=== PATIENT | male | born 1990 | race Caucasian/White ===

== ENCOUNTER 2017-10-27 14:38 | Emergency (ER) | payer SELFPAY ==
[~2017-10-27] VITALS: Ht 175.3 cm; Wt 72.7 kg
--- NOTE | 2017-10-27 16:57 | REP ---
Clinical: Left scrotal lump times 1 week. Technique: Real time beck scale and color Doppler evaluation using linear high frequency transducer. Findings: The bilateral testicles and epididymal heads are normal in contour, size, echogenicity and vascularity without testicular torsion, infectious/inflammatory process, mass lesion or epididymitis. A small right hydrocele is identified with two small cystic appendices testis/appendices epididymis measuring up to 4 mm. A small/moderate left hydrocele is identified with a single 5 mm cystic appendix testis/appendix epididymis which corresponds to the palpable mass. Impression: Small to moderate bilateral hydroceles and small cysts likely representing a few appendices testes/epididymis measuring 4 mm on the right and 5 mm on the left which corresponds to the patient's palpable mass. Signed by Everette Keller MD 10/27/2017 04:49 P
[2017-10-27 17:34] VITALS: BP 138/74
== END 2017-10-27 17:54 | disposition home or self-care (01) ==
LOC: M ED 14:38
DX: N43.3 Hydrocele, unspecified (principal); K50.90 Crohn's disease, unspecified, without complications; F17.210 Nicotine dependence, cigarettes, uncomplicated; Z88.8 Allergy status to other drugs, medicaments and biological substances